=== PATIENT | female | born 1985 | race Caucasian/White ===

== ENCOUNTER 2017-03-27 09:25 | Day surgery (SDC) | payer OTHER ==
[~2017-03-27] VITALS: Ht 157.5 cm; Wt 51.6 kg
[2017-03-27] MEDS ORDERED: ADVIL200 MG PO (10:30)
[2017-03-27] MEDS ORDERED: TYLENOL 325MG325 MG PO (10:30)
[2017-03-27] MEDS ORDERED: DESYREL 50MG50 MG PO (10:32)
[2017-03-27 10:40] VITALS: BP 113/69; PULSE 48; TEMP 97.5
[2017-03-27 11:50] VITALS: BP 106/48; PULSE 54; TEMP 97.7
[2017-03-27 12:00] VITALS: BP 101/57; PULSE 46
[2017-03-27 12:15] VITALS: BP 105/57; PULSE 43
[2017-03-27] MEDS ORDERED: ZANTAC 150MG T150 MG PO (12:19)
[2017-03-27] MEDS ORDERED: LEVSIN0.125 M1 PO (12:38)
[2017-03-27] MEDS ORDERED: ANUSOL-HC SUPPO25 MG RC (12:40)
[2017-03-27 12:45] VITALS: BP 105/65; PULSE 47
[2017-03-27 15:38] VITALS: BP 104/82; PULSE 92
== END 2017-03-27 13:15 | disposition home or self-care (01) ==
LOC: SDCO 09:25
DX: K64.0 First degree hemorrhoids (principal); K92.1 Melena; K29.30 Chronic superficial gastritis without bleeding; Z80.0 Family history of malignant neoplasm of digestive organs; F32.9 Major depressive disorder, single episode, unspecified; F41.9 Anxiety disorder, unspecified
CPT/HCPCS: OP; J2250; J2405; J3010; J7030